=== PATIENT | female | born 2000 | race Caucasian/White ===

== ENCOUNTER 2024-01-08 05:36 | Inpatient (IN) ==
[2024-01-08] MEDS ORDERED: OXYTOCIN 30 UNITS/NSS 30 UNITS/500 ML BAG IV PRN (15:51)
[2024-01-08] MEDS ORDERED: LIDOCAINE 1% LOCAL 20 ML VIAL INFIL PRN (15:51)
--- NOTE | 2024-01-08 15:56 | History & Physical Report ---
Date of Service January 08, 2024 Assessment & Plan (1) Encounter for induction of labor: Plan 23 y/o at 40w 5d here for IOL: Suárez bulb Pitocin AROM as indicated Epidural prn Monitor heart tracing, category 1 Admission and Anticipated Discharge Date Admission Date: January 08, 2024 History of Present Illness Chief Complaint: planned induction postdates Primary Care Provider: Ronald Arcos, DO 23 y/o female currently at 40w 5d with an LANG 01/04/24 as determined by LMP, who is here for IOL: and Delivery Plans *Rh Negative Received Rhogam 10/15/2023 Transfer from [facility] at 32w4d Had regular appointments with OB +Contractions + movement +Fluid loss +Vaginal bleeding, mild bloody show External FHT and external uterine monitors used: Category 1 tracing, baseline rate 150, moderate variability, irregular uterine contractions OB Labs: Hemoglobin 11.1 g/dl (12.0-16.0) L 11/20/23 Hematocrit 34.3 % (37.0-47.0) L 11/20/23 Mean Corpuscular Volume 89.0 fL (80.0-100.0) 05/01/22 Platelet Count 357 K/uL (130-400) 05/01/22 OB Optional Labs: Thyroid Stimulating Hormone (TSH) 1.967 uIu/ml (0.300-4.500) 11/20/23 Labs Reviewed: Initial OB Labs Blood Type & RH: A - Antibody Screen: Negative HCT/HGB: hgb 12.1/ Hct 35.5 Platelets: 369 Hep C IgG 13yrs+ Old: Negative Pap Test: 2020- WNL Chlamydia: Negative Gonorrhea: Negative Rubella: Immune RPR: NR Urine Culture/Screen: Negative HBsAg: Negative HIV: Negative MCV: 85.7 Ultrasound: Initial US 06/02/23, Anatomy US 09/11/23 Allergies Allergy/AdvReac Type Severity Reaction Status Date / Time No Known Allergies Allergy Verified 01/07/24 13:32 Patient History Medical History Varicella vaccination Routine health maintenance Depression with anxiety Migraine Surgical History No pertinent past surgical history Family History Grandmother (Maternal) Lung cancer Uterine fibroid Mother Uterine fibroid Other FHx: brain cancer Denies family history of Ovarian cancer Breast cancer Colorectal cancer Social History (Updated 11/13/23 @ 13:44 by Jacqui Padilla RN) Smoking Status: Never smoker Tobacco Type: E-cigarettes / Vaping Age Quit Using Tobacco: 20; Second Hand Exposure: Yes; Do You Dip or Chew Tobacco: No; Hx Alcohol Use: Yes Hx Substance Use: No Preferred Language: [place] Communication Ability: Effective Visual Impairment: No Limitations Hearing Ability: Normal 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 Beliefs That Will Affect Care: None marital status: marital status details: Sandeep Snell (25) [phone] Current Living Situation: Spouse Current Living Situation Comment: Lives with and step daughter, 1 dog current occupational status: employed current occupation: Rem[employer] for [employer] Other Information That Helps Us Care for You: No Feels Safe at Home: Yes Safety Concerns: Feels Safe At This Time Childhood Exposure to Second-Hand Smoke: No Diet: regular caffeine: Yes Dental Care, Regularly: Yes Physical Activity Frequency: Does not Exercise Seatbelt Use: always Assistive Devices: None OB History Del. Date GA wks Lbr Lgth wt Sex Type del Anes Place Del Prov ? 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 No acute distress Cardiac: Regular rate and rhythm, no murmurs appreciated Respiratory: Lungs clear to auscultation bilaterally, No increased work of breathing Abdominal: Soft, non-tender, non-distended. Bowel sounds present. Gravid uterus. Extremities: No lower extremity edema, calves non-tender bilaterally FHT/[place]: Category 1 tracing, baseline rate 150, moderate variability, irregular uterine contractions Results & Data Vital Signs (Past 12 Hours) Vital Signs Pulse BP 01/08/24 15:40 122 H 179/85 H Supervising Physician Co-Signing Physician Notes Resident Physician Supervision Note: I was present with Dr. Apple during the history and exam. I discussed the case with the resident and agree with the findings and plan as documented in the note. Any exceptions or clarifications are listed here: 23yo at 40+wks ega presents for planned induction for postdatism. Having some ctx. No concerns. Rh neg. sve 1+/60/-2 post. fhts categ 1. toco irregular. Will plan suárez balloon and pitocin. AROM when appropriate. Documented By: Casandra Hernandez MD, FACOG Resident Activity Tracking Resident Involvement: Resident Care Provided Care Provided: OB Delivery
[2024-01-08 16:22] LABS: Hematocrit (blood only) 33.9 % (37.0-47.0); Mean Corpuscular Hemoglobin 26.5 pg (25.0-34.0); Mean Corpuscular Hgb Conc 32.4 g/dL (32.0-36.0); Mean Corpuscular Volume 81.7 fL (80.0-100.0); Mean Platelet Volume 9.8 fL (9.4-12.4); Platelet Count 351 K/uL (130-400); RDW Standard Deviation 44.4 fL (36.4-46.3); Red Blood Count 4.15 M/uL (4.20-5.40); White Blood Count 12.49 K/ul (4.8-10.8)
--- NOTE | 2024-01-08 17:00 | Labor Progress Brief Note ---
Date of Service January 08, 2024 Subjective unfavorable cx for planned suárez ripening balloon Assessment & Plan (1) Encounter for induction of labor: (2) Post-dates : (3) Rh negative status during : Plan cervical dilator placed. pitocin. bp noted, labs ordered. Admission and Anticipated Discharge Date Admission Date: January 08, 2024 Physical Exam Constitutional: WD/WN, vitals as above Genitourinary: PROCEDURE: sse cx visualized, grasped on ant lip with ring forcep, suárez through os and balloon inflated with 40cc sterile water. Spec removed, suárez taped to leg. pt paris well. Results & Data Vital Signs (Past 12 Hours) Vital Signs Temp Pulse Resp BP 01/08/24 15:58 111 H 01/08/24 15:58 140/86 01/08/24 15:44 98.1 F 18 01/08/24 15:40 122 H 179/85 H Coding Level of Care Code None Diagnoses Encounter for induction of labor Z34.90 Post-dates O48.0 Rh negative status during O26.899; Z67.91 CPT Codes Misx Procedure Codes - 17559 Placement of cervical dilator: 88175 Placement of cervical dilator ([id number]) ORGANISATION AND METHODS ANALYST Miscellaneous Codes Misx Procedure Codes 55346 Placement of cervical dilator
[2024-01-08] MEDS: LACTATED RINGER'S 1,000 ML IV PRN (17:10)
[2024-01-08] MEDS: OXYTOCIN 30 UNITS/NSS 30 UNITS/500 ML BAG IV PRN (17:11)
[2024-01-08 17:50] LABS: Albumin Globulin Ratio 1.1 (0.9-2); Albumin Level 3.4 gm/dl (3.4-5.0); BUN Creatinine Ratio 23.7 (10-20); Bilirubin,Total 0.2 mg/dl (0.2-1.0); Creatinine Clr Calc Pharmacy 157.5 ml/min; Est GFR (African American) 148.7 ml/min; Est GFR (Non-African American) 128.3 ml/min; Globulin 3.1 gm/dl (2.5-4.0); Potassium 4.2 mmol/L (3.5-5.1); Total Protein 6.5 gm/dl (6.0-8.3)
[2024-01-08] MEDS ORDERED: LIDOCAINE 2% MPF LOCAL 5 ML VIAL EPI PRN (19:18)
[2024-01-08] MEDS ORDERED: ONDANSETRON INJ 2 MG/ML 2 ML VIAL IV PRN (19:18)
[2024-01-08] MEDS ORDERED: ROPIVACAINE 0.5% PF 5 MG/ML 20 ML VIAL EPI PRN (19:18)
[2024-01-08] MEDS ORDERED: NALOXONE HCL 1 MG in SODIUM CHLORIDE 0.9% 1,000 ML IV PRN (19:18)
[2024-01-08] MEDS ORDERED: NALBUPHINE HCL 5 MG in SYRINGE 0 ML IV PRN (19:18)
[2024-01-08] MEDS ORDERED: diphenhydrAMINE 50 MG/ML VIAL IV PRN (19:18)
[2024-01-08] MEDS ORDERED: NALOXONE HCL 0.4 MG/1 ML VIAL/CARP IV PRN (19:18)
[2024-01-08] MEDS ORDERED: SODIUM CHLORIDE 0.9% PF INJ 10 ML VIAL EPI PRN (19:18)
[2024-01-08] MEDS ORDERED: ePHEDrine sulfate 50 MG/ML AMP IV PRN (19:18)
--- NOTE | 2024-01-08 19:18 | Anesthesiology Consultation ---
Date of Service January 08, 2024 Assessment & Plan Chart Review Chart Review: Acceptable Risk for Labor Epidural Consults Requested none ASA ASA2 Proposed Anesthesia Anesthesia Type: Labor Epidural Risk / Benefits Reviewed With: PT / POA / Parent / Guardian, Accepts Plan and Informed Consent Obtained History Height/Weight Height: 5 ft 4 in Weight: 87.543 kg Allergies Allergy/AdvReac Type Severity Reaction Status Date / Time No Known Allergies Allergy Verified 01/07/24 13:32 Medications Active Medications Generic Name Dose Route Start Last Admin Trade Name Freq PRN Reason Stop Dose Admin Oxytocin 30 units in 500 mls @ 5 mls/hr 01/08/24 15:51 01/08/24 18:30 Pitocin 30 Units/Nss IV 01/10/24 15:50 0.3 units/hr .Q24H PRN 5 mls/hr Labor Induction/Augmentation Titration Protocol 0.3 UNITS/HR Lactated Ringer's 1,000 mls @ 125 mls/hr 01/08/24 15:51 01/08/24 17:10 Lr IV 01/10/24 15:50 125 mls/hr .Q8H PRN Administration L&D Protocol Protocol Past Medical History Medical History Varicella vaccination Routine health maintenance Migraine Exercise / Class Metabolic Activity II 4-5 Yardwork/Stairs/Walk up hill Past Family History Family History Grandmother (Maternal) Lung cancer Uterine fibroid Mother Uterine fibroid Other FHx: brain cancer Denies family history of Ovarian cancer Breast cancer Colorectal cancer Past Surgical History Surgical History No pertinent past surgical history Past Anesthesia History No Hx of Anesthesia Complications and No Family Hx of Anesthesia Complications History of PONV No Hx of PONV and No Hx of Motion Sickness Social History Smoking Status: Never smoker Do You Dip or Chew Tobacco: No Hx Alcohol Use: Yes Hx Substance Use: No Physical Exam Vital Signs Last Vital Signs Temp 98.1 F 01/08/24 15:44 Pulse 107 H 01/08/24 19:16 Resp 18 01/08/24 15:44 BP 145/80 H 01/08/24 19:16 Pulse Ox 99 01/08/24 19:13 ENMT Mouth: no dentition abnormality Thyromental Distance: > or= 3.5 Finger Breadths Mallampati Class: II Neck normal visual inspection Respiratory normal respiratory effort Auscultation: lungs clear to auscultation bilaterally Cardiovascular Rate/Rhythm: regular rate and regular rhythm Testing Laboratory Results 01/08/24 16:03 01/08/24 17:11
[2024-01-08] MEDS: LIDOCAINE 2%/EPINEPHRINE 1:200,000 20 ML PF EPI STA (19:40)
[2024-01-08] MEDS: fentANYL 2 MCG/ML BUPIVacaine 0.125%-NSS 100ML BAG EPI PRN (19:41)
[2024-01-08] MEDS: BUPIVACAINE 0.25% PF 30 ML VIAL EPI STA (19:41)
[2024-01-08] MEDS: fentaNYL citrate PF 100 MCG/2 ML VIAL EPI STA (20:21)
[2024-01-08] MEDS: BUPIVACAINE 0.25% PF 30 ML VIAL EPI PRN (20:22)
--- NOTE | 2024-01-08 20:47 | Anesthesia Procedure Note ---
Date of Service January 08, 2024 Anesthesia Epidural Re-Dose Vital Signs Temp Pulse Resp BP Pulse Ox 98.1 F 89 18 131/66 96 01/08/24 15:44 01/08/24 20:44 01/08/24 15:44 01/08/24 20:41 01/08/24 20:44 Notes Pain Intensity: 4 Dilatation (cm): 1 Called by nursing to evaluate epidural as the patient is having increased pain. The epidural was re-dosed with the following medications after negative aspiration of the epidural catheter for CSF/HEME. 3mL of 0.25% Bupivacaine and 50 mcg fentanyl After Epidural Re-Dose Mental Status: alert / awake / arousable Pain: improving with treatment Airway Patency, RR, SpO2: stable & adequate BP & HR: stable & adequate
--- NOTE | 2024-01-08 21:14 | Labor Progress Brief Note ---
Date of Service January 08, 2024 Subjective sleeping with epidural Assessment & Plan (1) Post-dates : (2) Encounter for induction of labor: (3) Rh negative status during : Plan c/w pit, increase to get labor pattern, will see how arom helps this. fhts categ 1. Admission and Anticipated Discharge Date Admission Date: January 08, 2024 Physical Exam Constitutional: WD/WN, vitals as above Genitourinary: Manual OB Exam: + cervical dilation 3 cm, + cervical effacement 80%, + station -2 and + amniotic fluid (arom) clear OB Exam Monitor Tracing: + external FHT monitor used, + external uterine monitor used (irreg), + category I and + normal FHT variability Results & Data Vital Signs (Past 12 Hours) Vital Signs Temp Pulse Resp BP Pulse Ox 01/08/24 21:09 98 01/08/24 21:09 76 01/08/24 21:09 123/65 01/08/24 21:04 96 01/08/24 21:04 77 01/08/24 20:59 96 01/08/24 20:59 89 01/08/24 20:56 83 01/08/24 20:56 122/65 01/08/24 20:54 96 01/08/24 20:54 96 H 01/08/24 20:53 94 01/08/24 20:53 106 H 01/08/24 20:49 97 01/08/24 20:49 94 H 01/08/24 20:44 96 01/08/24 20:44 89 01/08/24 20:41 87 01/08/24 20:41 131/66 01/08/24 20:39 96 01/08/24 20:39 96 H 01/08/24 20:34 96 01/08/24 20:34 89 01/08/24 20:30 18 01/08/24 20:30 18 01/08/24 20:29 96 01/08/24 20:29 88 01/08/24 20:25 84 01/08/24 20:25 120/70 01/08/24 20:25 91 H 01/08/24 20:25 122/65 01/08/24 20:24 95 01/08/24 20:24 90 01/08/24 20:19 92 01/08/24 20:19 89 01/08/24 20:15 18 01/08/24 20:15 18 01/08/24 20:14 90 01/08/24 20:14 85 01/08/24 20:13 92 01/08/24 20:13 90 01/08/24 20:09 89 L 01/08/24 20:09 91 H 01/08/24 20:09 87 01/08/24 20:09 135/55 L 01/08/24 20:07 86 01/08/24 20:07 128/74 01/08/24 20:05 96 H 01/08/24 20:05 123/77 01/08/24 20:04 91 01/08/24 20:04 85 01/08/24 20:03 90 01/08/24 20:03 90 01/08/24 20:03 121/75 01/08/24 20:01 95 H 01/08/24 20:01 123/67 01/08/24 19:59 95 H 01/08/24 19:59 122/73 01/08/24 19:58 89 L 01/08/24 19:58 90 01/08/24 19:58 88 L 01/08/24 19:58 109 H 01/08/24 19:58 135/71 01/08/24 19:55 92 H 01/08/24 19:55 125/68 01/08/24 19:53 89 L 01/08/24 19:53 87 01/08/24 19:53 129/73 01/08/24 19:51 93 H 01/08/24 19:51 127/73 01/08/24 19:50 18 01/08/24 19:50 18 01/08/24 19:50 18 01/08/24 19:50 18 01/08/24 19:49 99 H 01/08/24 19:49 126/74 01/08/24 19:48 93 01/08/24 19:48 82 01/08/24 19:47 94 01/08/24 19:47 95 H 01/08/24 19:47 120/73 01/08/24 19:45 18 01/08/24 19:45 18 01/08/24 19:45 86 01/08/24 19:45 132/77 01/08/24 19:43 95 01/08/24 19:43 101 H 01/08/24 19:43 129/74 01/08/24 19:41 100 H 01/08/24 19:41 124/73 01/08/24 19:40 18 01/08/24 19:40 18 01/08/24 19:39 103 H 01/08/24 19:39 123/72 01/08/24 19:38 96 01/08/24 19:38 107 H 01/08/24 19:33 96 01/08/24 19:33 111 H 01/08/24 19:28 98 01/08/24 19:28 103 H 01/08/24 19:23 97 01/08/24 19:23 121 H 01/08/24 19:18 99 01/08/24 19:18 133 H 01/08/24 19:16 107 H 01/08/24 19:16 145/80 H 01/08/24 19:13 99 01/08/24 19:13 95 H 01/08/24 18:16 93 H 01/08/24 18:16 111/57 L 01/08/24 15:58 111 H 01/08/24 15:58 140/86 01/08/24 15:44 98.1 F 18 01/08/24 15:40 122 H 179/85 H Coding Level of Care Code None Diagnoses Post-dates O48.0 Encounter for induction of labor Z34.90 Rh negative status during O26.899; Z67.91
[2024-01-08] MEDS: ePHEDrine sulfate 50 MG/ML AMP ONE (21:43)
[2024-01-08] MEDS: fentaNYL citrate PF 100 MCG/2 ML VIAL ONE (21:43)
[2024-01-08] MEDS: fentANYL 2 MCG/ML BUPIVacaine 0.125%-NSS 100ML BAG ONE (21:44)
[2024-01-08] MEDS: SODIUM CHLORIDE 0.9% PF INJ 10 ML VIAL ONE (21:44)
[2024-01-08] MEDS: LIDOCAINE 2%/EPINEPHRINE 1:200,000 20 ML PF ONE (21:44)
[2024-01-08] MEDS: BUPIVACAINE 0.25% PF 30 ML VIAL ONE (21:44)
[2024-01-08] MEDS: SODIUM CHLORIDE 0.9% PF INJ 10 ML VIAL EPI STA (21:45)
[2024-01-08] MEDS: fentaNYL citrate PF 100 MCG/2 ML VIAL EPI PRN (22:48)
--- NOTE | 2024-01-08 23:05 | Anesthesia Procedure Note ---
Date of Service January 08, 2024 Anesthesia Epidural Re-Dose Vital Signs Temp Pulse Resp BP Pulse Ox 98.6 F 78 18 142/79 H 97 01/08/24 21:11 01/08/24 22:59 01/08/24 21:11 01/08/24 22:54 01/08/24 22:59 Notes Pain Intensity: 6 Dilatation (cm): 3.0 Effacement (%): 80 Called by nursing to evaluate epidural as the patient is having increased pain. The epidural was re-dosed with the following medications after negative aspiration of the epidural catheter for CSF/HEME. 4mL of 0.25% Bupivacaine and 50mcg fentanyl After Epidural Re-Dose Mental Status: alert / awake / arousable Pain: improving with treatment Airway Patency, RR, SpO2: stable & adequate BP & HR: stable & adequate
[2024-01-09] MEDS ORDERED: NURSING L&D Epidural Breakthrough Pain Update ONE (00:07)
--- NOTE | 2024-01-09 00:40 | Labor Progress Brief Note ---
Date of Service January 09, 2024 Subjective feeling right sided pain. Assessment & Plan (1) Post-dates : (2) Encounter for induction of labor: (3) Rh negative status during : Plan begin 2nd stage. fhts categ 1. Admission and Anticipated Discharge Date Admission Date: January 08, 2024 Physical Exam Constitutional: WD/WN, vitals as above Genitourinary: Manual OB Exam: + cervical dilation (lip--> reduced with one push), + cervical effacement 100% and + station + 3 OB Exam Monitor Tracing: + external FHT monitor used, + external uterine monitor used (q2. pit at 13), + category I and + normal FHT variability pushing effectively Results & Data Vital Signs (Past 12 Hours) Vital Signs Temp Pulse Resp BP Pulse Ox 01/09/24 00:36 84 86 L 01/09/24 00:34 127 H 98 01/09/24 00:29 115 H 100 01/09/24 00:24 98 H 98 01/09/24 00:19 89 95 01/09/24 00:15 87 94 01/09/24 00:14 81 96 01/09/24 00:10 74 118/58 L 01/09/24 00:09 87 96 01/09/24 00:07 95 H 94 01/09/24 00:04 106 H 96 01/08/24 23:59 96 01/08/24 23:59 110 H 01/08/24 23:55 92 H 01/08/24 23:55 136/83 01/08/24 23:54 97 01/08/24 23:54 89 01/08/24 23:49 96 01/08/24 23:49 94 H 01/08/24 23:44 97 01/08/24 23:44 93 H 01/08/24 23:41 18 01/08/24 23:39 96 01/08/24 23:39 91 H 01/08/24 23:39 119/69 01/08/24 23:34 96 01/08/24 23:34 78 01/08/24 23:29 96 01/08/24 23:29 77 01/08/24 23:25 80 01/08/24 23:25 111/61 01/08/24 23:24 97 01/08/24 23:24 77 01/08/24 23:19 97 01/08/24 23:19 80 01/08/24 23:14 97 01/08/24 23:14 81 01/08/24 23:12 81 01/08/24 23:12 108/58 L 01/08/24 23:09 98 01/08/24 23:09 106 H 01/08/24 23:04 97 01/08/24 23:04 80 01/08/24 23:01 18 01/08/24 23:01 98.4 F 18 01/08/24 23:00 20 01/08/24 22:59 97 01/08/24 22:59 78 01/08/24 22:54 97 01/08/24 22:54 89 01/08/24 22:54 92 H 01/08/24 22:54 142/79 H 01/08/24 22:50 87 01/08/24 22:50 144/81 H 01/08/24 22:49 97 01/08/24 22:49 83 01/08/24 22:44 97 01/08/24 22:44 83 01/08/24 22:41 95 H 01/08/24 22:41 135/90 01/08/24 22:39 96 01/08/24 22:39 87 01/08/24 22:34 98 01/08/24 22:34 83 01/08/24 22:30 18 01/08/24 22:29 98 01/08/24 22:29 87 01/08/24 22:24 97 01/08/24 22:24 83 01/08/24 22:24 83 01/08/24 22:24 136/82 01/08/24 22:19 96 01/08/24 22:19 87 01/08/24 22:14 97 01/08/24 22:14 82 01/08/24 22:11 78 01/08/24 22:11 126/72 01/08/24 22:09 97 01/08/24 22:09 89 01/08/24 22:04 96 01/08/24 22:04 74 01/08/24 22:00 20 01/08/24 21:59 96 01/08/24 21:59 88 01/08/24 21:54 96 01/08/24 21:54 83 01/08/24 21:49 97 01/08/24 21:49 82 01/08/24 21:44 97 01/08/24 21:44 72 01/08/24 21:40 94 H 01/08/24 21:40 132/72 01/08/24 21:39 97 01/08/24 21:39 88 01/08/24 21:34 96 01/08/24 21:34 78 01/08/24 21:29 97 01/08/24 21:29 80 01/08/24 21:24 98 01/08/24 21:24 76 01/08/24 21:24 125/72 01/08/24 21:19 97 01/08/24 21:19 90 01/08/24 21:14 96 01/08/24 21:14 80 01/08/24 21:11 18 01/08/24 21:11 98.6 F 18 01/08/24 21:09 98 01/08/24 21:09 76 01/08/24 21:09 123/65 01/08/24 21:04 96 01/08/24 21:04 77 01/08/24 20:59 96 01/08/24 20:59 89 01/08/24 20:56 83 01/08/24 20:56 122/65 01/08/24 20:54 96 01/08/24 20:54 96 H 01/08/24 20:53 94 01/08/24 20:53 106 H 01/08/24 20:49 97 01/08/24 20:49 94 H 01/08/24 20:44 96 01/08/24 20:44 89 01/08/24 20:41 87 01/08/24 20:41 131/66 01/08/24 20:39 96 01/08/24 20:39 96 H 01/08/24 20:34 96 01/08/24 20:34 89 01/08/24 20:30 18 01/08/24 20:30 18 01/08/24 20:29 96 01/08/24 20:29 88 01/08/24 20:25 84 01/08/24 20:25 120/70 01/08/24 20:25 91 H 01/08/24 20:25 122/65 01/08/24 20:24 95 01/08/24 20:24 90 01/08/24 20:19 92 01/08/24 20:19 89 01/08/24 20:15 18 01/08/24 20:15 18 01/08/24 20:14 90 01/08/24 20:14 85 01/08/24 20:13 92 01/08/24 20:13 90 01/08/24 20:09 89 L 01/08/24 20:09 91 H 01/08/24 20:09 87 01/08/24 20:09 135/55 L 01/08/24 20:07 86 01/08/24 20:07 128/74 01/08/24 20:05 96 H 01/08/24 20:05 123/77 01/08/24 20:04 91 01/08/24 20:04 85 01/08/24 20:03 90 01/08/24 20:03 90 01/08/24 20:03 121/75 01/08/24 20:01 95 H 01/08/24 20:01 123/67 01/08/24 19:59 95 H 01/08/24 19:59 122/73 01/08/24 19:58 89 L 01/08/24 19:58 90 01/08/24 19:58 88 L 01/08/24 19:58 109 H 01/08/24 19:58 135/71 01/08/24 19:55 92 H 01/08/24 19:55 125/68 01/08/24 19:53 89 L 01/08/24 19:53 87 01/08/24 19:53 129/73 01/08/24 19:51 93 H 01/08/24 19:51 127/73 01/08/24 19:50 18 01/08/24 19:50 18 01/08/24 19:50 18 01/08/24 19:50 18 01/08/24 19:49 99 H 01/08/24 19:49 126/74 01/08/24 19:48 98.4 F 01/08/24 19:48 93 01/08/24 19:48 82 01/08/24 19:47 94 01/08/24 19:47 95 H 01/08/24 19:47 120/73 01/08/24 19:45 18 01/08/24 19:45 18 01/08/24 19:45 86 01/08/24 19:45 132/77 01/08/24 19:43 95 01/08/24 19:43 101 H 01/08/24 19:43 129/74 01/08/24 19:41 100 H 01/08/24 19:41 124/73 01/08/24 19:40 18 01/08/24 19:40 18 01/08/24 19:39 103 H 01/08/24 19:39 123/72 01/08/24 19:38 96 01/08/24 19:38 107 H 01/08/24 19:33 96 01/08/24 19:33 111 H 01/08/24 19:28 98 01/08/24 19:28 103 H 01/08/24 19:23 97 01/08/24 19:23 121 H 01/08/24 19:18 99 01/08/24 19:18 133 H 01/08/24 19:16 107 H 01/08/24 19:16 145/80 H 01/08/24 19:13 99 01/08/24 19:13 95 H 01/08/24 18:16 93 H 01/08/24 18:16 111/57 L 01/08/24 15:58 111 H 01/08/24 15:58 140/86 01/08/24 15:44 98.1 F 18 01/08/24 15:40 122 H 179/85 H Coding Level of Care Code None Diagnoses Post-dates O48.0 Encounter for induction of labor Z34.90 Rh negative status during O26.899; Z67.91
--- NOTE | 2024-01-09 02:00 | Delivery Summary ---
Vaginal Delivery Summary Date of Service January 09, 2024 Vaginal Delivery Summary and 2nd Degree LAC The patient dilated to complete and pushed to deliver a viable female infant Apgars 8 and 9 via over 2nd degree perineal laceration. Loose nuchal x 1 reduced. Mouth and nose bulb suctioned at perineum. Shoulders and body delivered with ease. Infant was vigorous and crying at . Cord clamped at 30 seconds of life and infant to maternal abdomen where the cord was then doubly clamped and cut. Placenta delivered spontaneously and intact, three-vessel cord. Hemostasis achieved with dilute pitocin and uterine massage. Cervix and sulci intact. Laceration repaired in layers with 3-0 and 2-0 vicryl. QBL 350 cc. Mother and baby stable in recovery[place] [facility] [place] Delivery Type Details: and 2nd Degree LAC
[2024-01-09] MEDS ORDERED: oxyCODONE/ACETAMINOPHEN 5mg/325mg TAB PO PRN (02:13)
[2024-01-09] MEDS ORDERED: bisacodyL 10 MG SUPP PR PRN (02:13)
[2024-01-09] MEDS ORDERED: DIPHTHER/TETAN/PERTUS Vaccine (Tdap, Adol/Adult) 0.5mL IM ONE (02:13)
[2024-01-09] MEDS ORDERED: HYDROCORTISONE ACETATE 25 MG SUPP PR PRN (02:13)
[2024-01-09] MEDS ORDERED: OXYTOCIN 30 UNITS/NSS 30 UNITS/500 ML BAG IV PRN (02:13)
[2024-01-09] MEDS: OXYTOCIN 20 UNITS/LR 1,002 ML IV SCH (02:20)
--- NOTE | 2024-01-09 07:01 | Anesthesia Procedure Note ---
Date of Service January 09, 2024 Anesthesia Post Epidural Note Vital Signs Vital Signs: Temp Pulse Resp BP Pulse Ox 36.7 C 99 H 18 121/66 93 01/09/24 01:45 01/09/24 03:54 01/09/24 03:45 01/09/24 03:54 01/09/24 01:31 Pain Intensity Bilateral Abdomen: Pain Intensity: 5 Notes Mental Status: alert / awake / arousable Nausea / Vomiting: adequately controlled Pain: adequately controlled Airway Patency, RR, SpO2: stable & adequate BP & HR: stable & adequate Hydration State: stable & adequate Neuraxial Anesthesia: was administered and sensory block is resolving Anesthetic Complications: no major complications apparent and Pt Satisfied with anesthetic care Epidural: Removed without complications and With tip intact
[2024-01-09] MEDS: IBUPROFEN 600 MG TAB PO PRN (07:36)
[2024-01-09] MEDS: PRENATAL VITAMIN 1 TAB PO SCH (07:36)
[2024-01-09] MEDS: DOCUSATE SODIUM 100 MG CAP PO SCH (07:36)
[2024-01-09] MEDS: BENZOCAINE 20% SPRY 85 APPLN/85 GM CAN EXT PRN (07:37)
[2024-01-09] MEDS: ACETAMINOPHEN 325 MG TAB PO PRN (07:37)
--- NOTE | 2024-01-10 06:40 | Obstetrical Progress Note ---
Date of Service <Zhou Apple DO - Last Filed: 01/10/24 07:04> January 10, 2024 Assessment & Plan <Zhou Apple DO - Last Filed: 01/10/24 07:04> (1) Encounter for assessment: Plan 23 y/o PPD#1: Eating well, voiding well, ambulating well Vitals reviewed, WNL Pain well controlled with Tylenol and Motrin Routine post care - OOB, ambulation, diet progression as tolerated Rh negative mother - baby is Rh negative, no Rhogam Will have 6 week follow up with Dr. Hernandez <Samantha Gill MD, FACOG - Last Filed: 01/10/24 07:16> (1) Encounter for assessment: Subjective <Zhou Apple - Last Filed: 01/10/24 07:04> Ambulation: ambulating normally Voiding: no voiding problems Diet Tolerance:: regular diet Lochia:: Moderate Feeding Type:: breast feeding pain well controlled with Tylenol and Motrin Review of Systems -Denies fever or chills -Denies dyspnea, chest pain, or palpitations -Denies dysuria -Denies headache or changes in vision Physical Exam <Zhou Apple - Last Filed: 01/10/24 07:04> General: Alert and oriented. No acute distress Cardiac: Regular rate and rhythm, no murmurs appreciated Respiratory: Lungs clear to auscultation bilaterally, No increased work of breathing Abdominal: Soft, non-tender, non-distended. Bowel sounds present. Uterus: Uterine fundus firm, palpable below umbilicus Extremities: No lower extremity edema, calves non-tender bilaterally Results & Data <Zhou Apple - Last Filed: 01/10/24 07:04> Vital Signs (Past 12 Hours) Vital Signs Temp Pulse Resp BP Pulse Ox O2 Del Method 01/09/24 23:02 36.4 C L 99 H 18 121/75 97 Room Air 01/09/24 18:58 36.7 C 101 H 16 115/77 97 Room Air Supervising Physician <Samantha Gill MD, FACOG - Last Filed: 01/10/24 07:16> Co-Signing Physician Notes Resident Physician Supervision Note: I interviewed and examined the patient. Discussed with Dr. Apple and agree with findings and plan as documented in the note. Any exceptions or clarifications are listed here: Doing well. Meeting milestones. Breast feeding well. Plan d/c . Instructions given. Documented By: Samantha Gill MD, FACOG Resident Activity Tracking <Zhou Apple, DO - Last Filed: 01/10/24 07:04> Resident Involvement: Resident Care Provided Care Provided: OB Delivery
--- NOTE | 2024-01-11 07:43 | Obstetrical Progress Note ---
Date of Service January 11, 2024 Assessment & Plan (1) Encounter for assessment: Day 2 status post vaginal delivery. Doing well and stable for discharge. visit type: exam and care immediately after delivery Qualified Code(s): Z39.0 - Encounter for care and examination of mother immediately after delivery Subjective Ambulation: ambulating normally Voiding: no voiding problems Passing Gas:: Yes Diet Tolerance:: regular diet Lochia:: Moderate Feeding Type:: breast feeding Physical Exam Constitutional WD/WN, vitals as above Respiratory normal respiratory effort; no respiratory distress and no labored breathing Cardiovascular Extremities: no calf tenderness Gastrointestinal (Abdomen) Inspection/Auscultation: abdomen normal to inspection; abdomen not distended Percussion/Palpation: abdomen soft; abdomen nontender, no guarding and abdomen not rigid Genitourinary OB Exam Abdomen: + fundal height Fundus: + firm and + relation to umbilicus (Below); not tender or not boggy Results & Data Vital Signs (Past 12 Hours) Vital Signs Temp Pulse Resp BP Pulse Ox O2 Del Method 01/10/24 23:03 36.8 C 99 H 18 118/79 93 Room Air 01/10/24 20:15 37.1 C 108 H 16 103/73 97 Room Air
[2024-01-11] MEDS: LORazepam 0.5 MG TAB PO STA (10:52)
[2024-01-11 11:15] LABS: Hematocrit (blood only) 28.3 % (37.0-47.0); Mean Corpuscular Hemoglobin 26.5 pg (25.0-34.0); Mean Corpuscular Hgb Conc 31.8 g/dL (32.0-36.0); Mean Corpuscular Volume 83.5 fL (80.0-100.0); Mean Platelet Volume 9.9 fL (9.4-12.4); Platelet Count 271 K/uL (130-400); RDW Coefficient of Variation 15.6 % (11.5-14.5); RDW Standard Deviation 47.4 fL (36.4-46.3); Red Blood Count 3.39 M/uL (4.20-5.40); White Blood Count 9.68 K/ul (4.8-10.8)
== END 2024-01-11 13:55 | disposition home or self-care (01) | DRG 807 ==
LOC: CANPREIN → 4S1 15:36 → 4E2 01-09 15:23